=== PATIENT | female | born 1935 | race Caucasian/White ===

== ENCOUNTER → 2018-05-10 | Day surgery (SDC) | payer MEDICARE, OTHER ==
[2018-05-09 11:34] VITALS: BMI 21.1
[~2018-05-10] MED LIST: BUPIVACAINE HCL/PF 0.5% (5MG/ML) 10 ML VIAL ONE; ERYTHROMYCIN 0.5% OPHTHALMIC OINTMENT 3.5 GM TUBE ONE; LACTATED RINGERS SOLUTION 1,000 ML IV SCH; LIDOCAINE 1%/EPI 1:100000 (20 ML MULTI DOSE VIAL) ONE; LIDOCAINE HCL/PF 2% SDV 5ML VIAL ONE; MIDAZOLAM HCL 2 MG/2 ML SINGLE DOSE VIAL ONE; ONDANSETRON 4 MG/2 ML VIAL IVPUSH PRN; POVIDONE-IODINE 5% OPHTHALMIC PREP 30 ML SOLUTION ONE; PROPOFOL 20 ML ONE; TETRACAINE 0.5% OPHTH SOLN 2 ML BOTTLE ONE; ceFAZolin SODIUM 1 GM VIAL ONE; oxyCODONE HCL 5 MG TABLET PO PRN
--- NOTE | 2018-05-10 12:48 | OP ---
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 PROCEDURE: 1. Lateral tarsal strip, right lower lid. 2. Transconjunctival plication of retractors, right lower lid. 3. Excision of orbicularis flap at the inferior tarsus, right lower lid. SURGEON: Kash Zavala MD ANESTHESIA: Local with sedation. COMPLICATIONS: None. ESTIMATED BLOOD LOSS: 3-4 mL. OPERATIVE REPORT: The patient was brought to the operating room and placed on the operating room table. Vital signs were monitored by Anesthesia. Tetracaine was placed in both eyes. Lateral canthal line was marked at the right lateral canthus. Intravenous sedation was administered. Time-out was performed, and then a 50/50 mixture of 2% Xylocaine and 1:100,000 epinephrine and 0.5% Marcaine was injected subcutaneously at the right lateral canthus down to periosteum lateral 1/3 of the upper and lower lid and subconjunctivally in the right lower lid at the inferior tarsus for 1-2 mL and subcutaneously in the central right lower lid. Massage was applied for hemostasis. The patient was prepped in the usual sterile fashion exposing both eyes. A lateral canthal incision was made in the right lateral canthus and carried down to periosteum with a [place] needle. The inferior jairo of the lateral canthal tendon was from the orbital rim with sharp dissection. It was overlapped at the orbital rim, marked with a sterile marking pen, divided into the anterior and posterior lamella. The anterior lamella was excised. The posterior lamella was noted to posteriorly and superiorly, and it was reattached to the orbital rim at the appropriate position at the junction with the superior jairo of the lateral canthal tendon with a double arm 5-0 Prolene reinforced with two 6-0 Vicryl silk sutures. Before this was tied, a 4-0 silk suture was passed through the central lid margin. Lid was everted over Desmarres retractor. Transconjunctival incision was made with subconjunctival retractors exposing the post orbicularis fascia and carried down to release the septum. This pretarsal orbicularis was now from the inferior tarsus, and a partial thickness strip of pretarsal orbicularis into the inferior edge of the tarsus was excised to create a scar. The retractors were then plicated with four 7-0 buried Vicryl sutures reattaching them to the anterior inferior tarsus in buried fashion. This was closed with conjunctival retractors. The lateral canthal angle was reformed with a buried 5-0 chromic through the ferrera line in the upper and lower lid. The lateral tarsal strip was reattached to the orbital rim by tying the 5-0 Prolene. The excess tarsal strip was overlapped over the Prolene and tied with a 5-0 chromic. The subcuticular tissues were closed with a 5-0 chromic, and the skin was closed with a running 6-0 plain suture. After antibiotic irrigation, the traction suture was removed. Erythromycin ointment was placed in the eye and on the sutures, and the patient was taken to the recovery room in stable condition. KASH ZAVALA M.D. [id number]
[2018-05-10 14:37] VITALS: TEMP 98.1
[2018-05-10 14:47] VITALS: BP 170/72; PULSE 76
== END | disposition home or self-care (01) ==
LOC: FASU 07:17
PROVIDERS: ATTEND Ophthalmology
PROC: 08SQ0ZZ Reposition Right Lower Eyelid, Open Approach (ICD-10-PCS; principal; 2018-05-10 11:07)
DX: H02.002 Unspecified entropion of right lower eyelid (principal)
CPT/HCPCS: 94760

== ENCOUNTER 2018-05-24 09:35 | Day surgery (SDC) | payer OTHER ==
[2018-05-20 10:14] VITALS: BMI 21.7
[2018-05-24] MEDS ORDERED: PROPOFOL 20 ML ONE ×3 (09:45→15:52)
[2018-05-24] MEDS ORDERED: ceFAZolin SODIUM 1 GM VIAL ONE ×2 (10:48→16:16)
[2018-05-24] MEDS ORDERED: POVIDONE-IODINE 5% OPHTHALMIC PREP 30 ML SOLUTION ONE (15:42)
[2018-05-24] MEDS ORDERED: MIDAZOLAM HCL 2 MG/2 ML SINGLE DOSE VIAL ONE (15:52)
[2018-05-24] MEDS ORDERED: oxyCODONE HCL 5 MG TABLET PO PRN ×2 (17:35)
[2018-05-24] MEDS ORDERED: ONDANSETRON 4 MG/2 ML VIAL IVPUSH PRN (17:35)
[2018-05-24] MEDS ORDERED: LACTATED RINGERS SOLUTION 1,000 ML IV SCH (17:45)
[2018-05-24 17:48] VITALS: TEMP 97.7
[2018-05-24 18:50] VITALS: BP 146/86; PULSE 79
--- NOTE | 2018-05-24 21:59 | OP ---
DATE OF OPERATION: 05/24/2018 PREOPERATIVE DIAGNOSIS: Involutional ectropion, left lower lid. POSTOPERATIVE DIAGNOSIS: Involutional ectropion, left lower lid with secondary keratitis. PROCEDURE: 1. Lateral tarsal strip, left lower lid. 2. Transconjunctival plication of retractors, left lower lid. 3. Excision of orbicularis flap, left lower lid. SURGEON: Kash Zavala MD ANESTHESIA: Local with sedation. COMPLICATIONS: None. ESTIMATED BLOOD LOSS: 2-3 mL. OPERATIVE REPORT: The patient was brought to the operating room and placed on the operating room table. Vital signs were monitored by Anesthesia. Tetracaine was placed in both eyes. A time-out was performed. Lateral canthal line was marked in the left lateral canthus, and a 50/50 mixture of 2% Xylocaine and 1:100,000 epinephrine and 0.5% Marcaine was injected subcutaneously from the lateral canthus down to periosteum lateral 1/3 in the upper and lower lid and transconjunctivally along the posterior surface and the inferior edge of the tarsus in the left lower lid for a total of 3 mL. The patient was prepped in the usual sterile fashion exposing both eyes. A 4-0 silk retractor suture was passed through the central lid margin. With the use of retraction, a lateral canthal incision was made with a 15 blade through the skin and subcutaneous tissue. This was carried down to the orbital rim with a Osborne needle. The inferior jairo of the lateral canthal tendon was from the orbital rim with sharp dissection. The lid was overlapped at the orbital rim, marked with a sterile marking pen, divided into an anterior and posterior lamella. The anterior lamella was excised. The posterior lamella posteriorly and superiorly, and it was reattached to the orbital rim at the appropriate spot to be symmetric with the contralateral side with a double-arm 5-0 Prolene reinforced with two 6-0 Vicryl lasso sutures. This was not tied. The lid was everted over a Desmarres retractor. A transconjunctival incision was made at the inferior tarsus, and the conjunctival retractor was recessed exposing the preseptal and pretarsal orbicularis. The pretarsal orbicularis was from the tarsus across the lid on the inferior 1/3 of the tarsus and then the retractors were plicated to the anterior inferior tarsus using 4 interrupted 6-0 Vicryl sutures placating the retractors and closing the conjunctiva. The lateral canthal angle was reformed with a 5-0 chromic in buried fashion to the greater line of the upper and lower lid. The Prolene was now tied attaching the tarsal strip to the orbital rim. The excess tarsal strip was excised, and the tarsal strip was overlapped with Prolene, tied with a 5-0 chromic. Antibiotic irrigation was used. The muscular layer was closed with 5-0 chromic and the skin with running interrupted 6-0 plain suture with plastic technique. Erythromycin ointment was placed in the eye and on the sutures, and the patient was taken to the recovery room in stable condition. KASH ZAVALA M.D. [id number]
== END 2018-05-24 18:55 | disposition home or self-care (01) ==
LOC: FASU 09:35
PROVIDERS: ATTEND Ophthalmology
PROC: 08SR0ZZ Reposition Left Lower Eyelid, Open Approach (ICD-10-PCS; principal; 2018-05-24 10:30)
DX: H02.005 Unspecified entropion of left lower eyelid (principal)
CPT/HCPCS: 94760